=== PATIENT | female | born 1995 | race Caucasian/White ===

== ENCOUNTER 2016-06-18 21:03 | Outpatient (CLI) | payer OTHER ==
[~2016-06-18] VITALS: Ht 154.9 cm; Wt 68.6 kg
[2016-06-18 21:22] VITALS: BP 131/81; PULSE 79; TEMP 97.9
[2016-06-18 21:45] VITALS: BP 131/81; PULSE 79; TEMP 97.9
== END 2016-06-18 22:41 | disposition home or self-care (01) ==
LOC: LDRO 21:03
DX: O47.1 False labor at or after 37 completed weeks of gestation (principal); Z3A.39 39 weeks gestation of pregnancy

== ENCOUNTER 2016-06-20 12:45 | Inpatient (IN) | payer OTHER ==
[~2016-06-20] VITALS: Ht 154.9 cm; Wt 69.5 kg
[2016-06-20] VITALS (28 sets, daily range): BP systolic 108–137; BP diastolic 57–91; PULSE 74–106; TEMP 98.1–98.8
[2016-06-20 14:45] LABS: BASO % 0.2 % (0.0-2.0); EOS % 0.5 % (0-4.0); GRAN # 6.7 (1.4-6.5); GRAN % 81.3 % (42.2-75.2); LYMPH % 11.5 % (20.0-51.0); MEAN CELL VOLUME 83 fl (80.0-100.0); MEAN CORPUSCULAR HGB CONC 33 g/dl (33.0-37.0); MEAN PLATELET VOLUME 11.5 fl (7.4-10.4); MONO # 0.5 (0.1-0.6); MONO % 5.9 % (1.7-9.3); PLATELET COUNT 198 K/mm3 (130-400); RED BLOOD COUNT 3.43 M/mm3 (4.10-5.30); WHITE BLOOD COUNT 8.3 K/mm3 (4.8-10.8)
[2016-06-20 14:46] LABS: HEMATOCRIT 28.4 % (37.0-47.0); HEMOGLOBIN 9.3 g/dl (12.5-16.0); MEAN CORPUSCULAR HEMOGLOBIN 27 pg (27.0-31.0)
[2016-06-20] MEDS ORDERED: PERCOCET 325 MG1 TA2 PO (17:05)
[2016-06-20] MEDS ORDERED: MOTRIN 800800 MG/TAB PO (17:05)
[2016-06-21 02:40] VITALS: BP 118/75; PULSE 78; TEMP 97.7
[2016-06-21 07:30] VITALS: BP 112/71; PULSE 82; TEMP 98.3
[2016-06-21 20:00] VITALS: BP 121/75; PULSE 88; TEMP 98
== END 2016-06-21 21:15 | disposition home or self-care (01) | DRG 775 ==
LOC: LDRO 12:45 → LDR 13:00 → OB 23:20
PROVIDERS: Obstetrics & Gynecology
PROC: 10E0XZZ Delivery of Products of Conception, External Approach (ICD-10-PCS; principal; 2016-06-20)
DX: O62.0 Primary inadequate contractions (principal); O69.81X0 Labor and delivery complicated by cord around neck, without compression, not applicable or unspecified; O75.89 Other specified complications of labor and delivery; Z3A.39 39 weeks gestation of pregnancy; Z37.0 Single live birth
CPT/HCPCS: J2210; J2590; J2795; J7120